=== PATIENT | female | born 1965 | race Caucasian/White ===

== ENCOUNTER 2020-02-02 07:51 | Outpatient (CLI) | payer BC, SELFPAY ==
--- NOTE | ~2020-02-02 | MM_ITS ---
EXAMINATION: MM screening [facility] BI w juanito HISTORY: Screening mammogram TECHNIQUE: Craniocaudal and mediolateral oblique 3-D tomosynthesis images were obtained and synthetic 2-D images were generated. CAD analysis was submitted and interpreted. COMPARISON: 03/25/2018 bilateral digital screening mammogram 03/10/2017 bilateral diagnostic digital mammogram and limited left breast ultrasound 09/17/2016 diagnostic left digital mammogram and limited left breast ultrasound 03/17/2016 diagnostic left digital mammogram 03/09/2016 bilateral digital screening mammogram BREAST PARENCHYMAL COMPOSITION: There are scattered areas of fibroglandular density. FINDINGS: There is no evidence of suspicious mass, calcification, or architectural distortion to sugg est malignancy in either breast. There has been no suspicious interval change. IMPRESSION: 1. No mammographic evidence of malignancy. 2. Recommend routine screening mammography in one year. BI-RADS Category 1: Negative Reviewed, dictated and finalized at location A. 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
--- NOTE | ~2020-02-02 | DEXA_ITS ---
Bone Density Report Name: Destiny Lucas Age: 54 Sex: Female Ethnicity: White Date of : 1965 Indication: postmenopausal; height loss; asthma or emphysema; Referring Provider: Lyndsay White Study: Bone densitometry was performed. Exam Date: February 02, 2020 Accession number: [id number] Bone Density: Region BMD T-score Z-score Classification AP Spine (L1-L4) 1.102 0.5 1.5 Normal Femoral Neck (Left) 0.708 -1.3 -0.3 Osteopenia Total Hip (Left) 0.913 -0.2 0.4 Normal Total Hip Bilateral Avg 0.910 -0.3 0.4 Normal Femoral Neck (Right) 0.760 -0.8 0.2 Normal Total Hip (Right) 0.906 -0.3 0.3 Normal World Health Organization criteria for BMD impression classify patients as: Normal (T-score at or above -1.0), Osteopenia (T-score between -1.0 and -2.5), or Osteoporosis (T-score at or below -2.5). 10-year Fracture Risk(1): Major Osteoporotic Fracture 5.9% Hip Fracture 0.7% Reported Risk Factors: [place] (), Neck BMD=0.708, BMI=25.3, smoking (1) FRAX(R) Version 3.08. Fracture probability calculated for an untreated patient. Fracture probability may be lower if the patient has received treatment. Clinical Information Provided by Patient: Smokes Has the following medical conditions: Asthma or Emphysema Patient maximum height was 64.5 Menopause Age: 52 Does not regularly consume dairy products Drinks caffeinated beverages Onset of menses at age 13 Number of children 1 Impression: The patient has low bone mass, based on the Left Femoral Neck T-score. The patient has an estimated ten-year risk of hip fracture of 0.7% and an estimated ten-year risk of major fracture of 5.9%, based on the WHO FRAX algorithm. The patient has risk factors, including: smoking. Discussion: BONE DENSITY IS LOW AT ONE OR MORE SKELETAL SITES. This patient's lowest T-score is low at one or more skeletal sites. It meets the World Health Organization's (WHO) criteria for ?low bone mass? (T-score between -1.0 and -2.5). The patient's 10-year risk of fracture as calculated by FRAX is less than the threshold where pharmacological therapy is recommended by the National Osteoporosis Foundation (NOF). However, all treatment decisions require clinical judgment and consideration of individual patient factors, including patient preferences, comorbidities, previous drug use, risk factors not captured in the FRAX model (e.g., frailty, falls, vitamin D deficiency, increased bone turnover, interval significant decline in bone density) and possible under or overestimation of fracture risk by FRAX. The patient should follow a healthful lifestyle (good nutrition with adequate calcium and vitamin D, and appropriate weight-bearing exercise). Follow-Up: Consider repeating this study in 2 to 3 years to reassess this patient's status, or sooner if t
== END 2020-02-02 07:52 | disposition home or self-care (01) ==
LOC: ANHIMG 07:53
PROVIDERS: PCP Nurse Practitioner Adult Health; Visit Provider Student in an Organized Health Care Education/Training Program
DX: Z12.31 Encounter for screening mammogram for malignant neoplasm of breast (principal); Z78.0 Asymptomatic menopausal state; M85.852 Other specified disorders of bone density and structure, left thigh
CPT/HCPCS: 77063; 77067; 77080

== ENCOUNTER 2021-03-27 07:44 | Outpatient (CLI) | payer BC, SELFPAY ==
--- NOTE | ~2021-03-27 | MM_ITS ---
EXAMINATION: MM screening [facility] BI w juanito HISTORY: Screening mammogram TECHNIQUE: Craniocaudal and mediolateral oblique 3-D tomosynthesis images were obtained and synthetic 2-D images were generated. CAD analysis was submitted and interpreted. COMPARISON: 02/02/2020, 03/25/2018, 03/10/2017, 09/21/2016, 03/17/2016, 03/09/2016 BREAST PARENCHYMAL COMPOSITION: There are scattered areas of fibroglandular density. FINDINGS: There is no evidence of suspicious mass, calcification, or architectural distortion to sugg est malignancy in either breast. There has been no suspicious interval change. IMPRESSION: 1. No mammographic evidence of malignancy. 2. Recommend routine screening mammography in one year. BI-RADS Category 1: Negative Reviewed, dictated and finalized at location A. 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
== END 2021-03-27 07:45 | disposition home or self-care (01) ==
LOC: ANHIMG 07:47
PROVIDERS: PCP Nurse Practitioner Adult Health; Visit Provider Student in an Organized Health Care Education/Training Program
DX: Z12.31 Encounter for screening mammogram for malignant neoplasm of breast (principal)
CPT/HCPCS: 77063; 77067

== ENCOUNTER 2021-10-05 13:35 | Emergency (ER) | payer BC, SELFPAY ==
--- NOTE | ~2021-10-05 | XR_ITS ---
EXAM: XR finger 4th LT min 2V DATE: 10/05/2021 16:35 HISTORY: laceration prox phalanx Lt 4th finger, injury . COMPARISON: None available. FINDINGS: Normal mineralization. No fracture or dislocation. No lytic or blastic lesion. Joint space s are maintained. No erosion or periosteal change. Soft tissues within normal limits. IMPRESSION: No acute osseous finding in the left fourth finger. Reviewed, dictated and finalized at location K.
[2021-10-05 13:40] VITALS: BP 113/51; PULSE 101; RESP 16; TEMP 36.7; O2SAT 100
--- NOTE | 2021-10-05 16:25 | ED.WOUNDLAC ---
HPI - Wound/Laceration General Chief Complaint: Wound/Laceration Stated Complaint: laceration to left hand Time Seen by Provider: 10/05/21 15:57 Source: patient Mode of arrival: ambulatory Limitations: no limitations History of Present Illness HPI narrative: 56 years old white female came with laceration of the left third finger after that finger got caught while trying to close the gate. Last tetanus shot less than 5 years, patient drove herself to the emergency room. Related Data Home Medications Medication Instructions Recorded Confirmed alprazolam 1 mg tablet 1 mg PO BID 10/20/19 04/08/21 cholecalciferol (vitamin D3) 125 125 mcg PO DAILY 10/20/19 04/08/21 mcg (5,000 unit) capsule sertraline 100 mg tablet (Zoloft) 100 mg PO DAILY 10/20/19 04/08/21 sertraline 50 mg tablet (Zoloft) 50 mg PO DAILY 10/20/19 04/08/21 celecoxib 50 mg capsule (Celebrex) 50 mg PO BID 04/08/21 04/08/21 Allergies Allergy/AdvReac Type Severity Reaction Status Date / Time adhesive tape Allergy Intermediate RASH Verified 04/08/21 11:35 codeine Allergy Unknown Unknown Verified 04/08/21 11:35 Review of Systems Review of Systems: All systems reviewed & are unremarkable except as noted in HPI and below PMFSH Past Medical History Medical History (Updated 10/05/21 @ 17:57 by Sebastian Leslie MD) Anxiety Anxiety and depression Urinary frequency Surgical History Surgical History H/O section Family History Family History Mother Cerebrovascular accident Grandparent Carcinoma of colon Other Family history of malignant neoplasm of breast Social History Social History Smoking status: Current every day smoker Alcohol intake: current Substance use type: marijuana Exam Narrative: General appearance: Well-developed, well-nourished Skin: Normal color Chest and respiratory: Airway patent, no respiratory distress, no accessory muscle use Heart: Regular rate/rhythm Vascular: Normal peripheral pulses, normal capillary refill. Musculoskeletal: Left third finger showed laceration at the lateral side of the proximal phalanx 2 and half centimeter subcutaneous Neurologic: Alert and oriented ?3, Course Vital Signs Vital signs: Vital Signs Temperature 36.7 C 10/05/21 13:40 Pulse Rate 101 H 10/05/21 13:40 Respiratory Rate 16 10/05/21 13:40 Blood Pressure 113/51 L 10/05/21 13:40 Pulse Oximetry 100 10/05/21 13:40 Oxygen Delivery Room Air 10/05/21 13:40 Temperature 36.7 C 10/05/21 13:40 Pulse Rate 101 H 10/05/21 13:40 Respiratory Rate 16 10/05/21 13:40 Blood Pressure 113/51 L 10/05/21 13:40 Pulse Oximetry 100 10/05/21 13:40 Oxygen Delivery Room Air 10/05/21 13:40 Procedures Laceration Laceration 1: Date: 10/05/21 Time: 18:01 Site: hand and other (Left fourth finger) Side (If applicable): left Size (cm): 2.5 Description: linear Depth: simple, single layer Local Anesthetic: lidocaine 1% and with epi Amount of anesthesia used (mL): 3 Pre-repair: wound explored, irrigated extensively and deep structures intact ====== Skin Level ====== Skin layer closed with: nylon Size (cm): 6-0 Number of sutures: 5 ====== Subcutaneous Layer ====== ====== Muscle Layer ====== ====== Tendon Layer ====== Discharge Plan Discharge Clinical Impression: Laceration of finger Patient Disposition: Home, Self-Care Condition: Stable Instructions: Anti
[2021-10-05] MEDS: ACETAMINOPHEN 500 MG TABLET 1000 MG PO (16:47)
[2021-10-05] MEDS: IBUPROFEN 600 MG TABLET PO (16:47)
== END 2021-10-05 18:10 | disposition home or self-care (01) ==
PROVIDERS: Emergency Provider Emergency Medicine; PCP Nurse Practitioner Adult Health
DX: S61.213A Laceration without foreign body of left middle finger without damage to nail, initial encounter (principal); F41.9 Anxiety disorder, unspecified; F32.A Depression, unspecified; F17.200 Nicotine dependence, unspecified, uncomplicated; W23.0XXA Caught, crushed, jammed, or pinched between moving objects, initial encounter
CPT/HCPCS: 12001; 73140; 99283; A9270

== ENCOUNTER 2021-10-15 00:18 | Day surgery (SDC) | payer BC, SELFPAY ==
[2021-10-08 11:43] VITALS: BMI 25.0
[2021-10-15 12:35] VITALS: BP 117/69; PULSE 55; RESP 16; TEMP 36.4; O2SAT 100; BMI 25.4
[2021-10-15] MEDS: LACTATED RINGERS 1,000 ML 150 ML IV CONT (12:44)
--- NOTE | 2021-10-15 12:55 | P.PNAN_ITS ---
Anes - Initial Pre Proc Eval Procedure: Operation Date: 10/15/21 14:00 Proposed Procedures p Colonoscopy - Marc Pearson MD Date/Time: 10/15/21 12:55 Surgeon: Marc Pearson MD Pre Op Diagnosis: abnormal CT scan Patient Data Age: 56 Gender: F Height: 1.63 m Weight: 67.3 kg Last Vital Signs Temp 97.6 F 10/15/21 12:35 Pulse 55 L 10/15/21 12:35 Resp 16 10/15/21 12:35 BP 117/69 10/15/21 12:35 Pulse Ox 100 10/15/21 12:35 O2 Del Method Room Air 10/15/21 12:35 Allergies Allergy/AdvReac Type Severity Reaction Status Date / Time adhesive tape Allergy Intermediate RASH Verified 10/15/21 12:34 codeine Allergy Unknown Unknown Verified 10/15/21 12:34 Home Medications Medication Instructions Recorded Confirmed Type alprazolam 1 mg tablet 1 mg PO TID PRN Anxiety 10/20/19 10/15/21 History sertraline 100 mg tablet (Zoloft) 150 mg PO DAILY 10/20/19 10/15/21 History Patient hx anesthesia problems: none Family hx anesthesia problems: none Results Review: All pre-operative results and documents have been reviewed as part of the pre- operative evaluation. [facility] Past Medical History Medical History (Updated 10/06/21 @ 00:01 by Rashad Gimenez) Anxiety Anxiety and depression Urinary frequency Surgical History Surgical History H/O section Family History Family History Mother Cerebrovascular accident Grandparent Carcinoma of colon Other Family history of malignant neoplasm of breast Social History Social History Smoking packs per day: 1 Smoking cigarettes per day: 20.0 Years smoked: 35 Smoking pack-years: 35.00 Smoking status: Current every day smoker Tobacco type: cigarettes Alcohol intake: former Substance use: current Substance use type: marijuana Other substance usage details: 2X WEEKLY Living arrangements: with family Spiritual care concerns: No Anes - Eval Final PreProcedure Day of Procedure 10/15/21 12:55 Patient weight: normal Heart: regular rate and rhythm Lungs: clear to auscultation Airway: Mallampati scale class II Neurological: alert and oriented Last oral intake: >/= 8 hours ASA classification: II Emergent: no Anesthetic plan: proceed Anesthesia type and monitoring: general GIVS and standard monitoring Results Review: All pre-operative results and documents have been reviewed as part of the pre- operative evaluation. Informed Consent: The patient's anesthetic plan and its attendant risks and benefits were discussed with the patient/family/POA. Questions were solicited and answers provided to the satisfaction of the patient/family/POA.
--- NOTE | 2021-10-15 13:24 | PM.HPGS ---
History of Present Illness History of Present Illness Consent: Risks, benefits, and alternatives have been discussed and questions answered. Patient agrees to proceed with procedure. Chief complaint: abnormal CT scan Narrative: Destiny Lucas is a 56 year old female with epigastric pain, CT scan with incidental finding of sigmoid thickening. Last colonoscopy about 3 years ago. Review of Systems Constitutional: Constitutional: Denies headache(s) and Denies weakness Eyes: Eyes: Denies blurry vision ENT: Reports Normal hearing present, Denies headache(s) and Denies neck pain Cardiovascular: Cardiovascular: Denies chest pain and Denies dyspnea Respiratory: Respiratory: Denies dyspnea Gastrointestinal: Gastrointestinal: Reports no additional gastrointestinal complaints Genitourinary: Genitourinary: Denies dysuria Musculoskeletal: Musculoskeletal: Denies neck pain Integumentary/Breasts: Skin/Breast: Denies dry skin Neurologic: Reports Normal hearing present, Denies headache(s) and Denies weakness Psychiatric: Psychiatric: Denies anxiety Endocrine: Endocrine: Denies change in body appearance Hematologic/Lymphatic: Hematologic/Lymphatic: Denies easy bleeding Allergic/Immunologic: Allergic/Immunologic: Denies urticaria PMFSH Past Medical History Medical History (Updated 10/15/21 @ 13:25 by Marc Pearson MD) Abnormal CT scan, sigmoid colon Anxiety Anxiety and depression Urinary frequency Surgical History Surgical History H/O section Family History Family History Mother Cerebrovascular accident Grandparent Carcinoma of colon Other Family history of malignant neoplasm of breast Social History Social History Smoking packs per day: 1 Smoking cigarettes per day: 20.0 Years smoked: 35 Smoking pack-years: 35.00 Smoking status: Current every day smoker Tobacco type: cigarettes Alcohol intake: former Substance use: current Substance use type: marijuana Other substance usage details: 2X WEEKLY Living arrangements: with family Spiritual care concerns: No Meds Home Medications and Allergies Home Medications Medication Instructions Recorded Confirmed Type alprazolam 1 mg tablet 1 mg PO TID PRN Anxiety 10/20/19 10/15/21 History sertraline 100 mg tablet (Zoloft) 150 mg PO DAILY 10/20/19 10/15/21 History Allergies Allergy/AdvReac Type Severity Reaction Status Date / Time adhesive tape Allergy Intermediate RASH Verified 10/15/21 12:34 codeine Allergy Unknown Unknown Verified 10/15/21 12:34 Vital Signs Vital Signs - 24 hr 10/15/21 12:35 Temperature 97.6 F Pulse Rate 55 L Respiratory Rate 16 Blood Pressure 117/69 Pulse Oximetry 100 Oxygen Delivery Room Air Exam Const: General: comfortable and no acute distress HENMT: General nose exam: Normal nares present Eyes: General: appearance normal, both eyes and all related structures Neck: Neck: no JVD Resp: Auscultation: clear to auscultation bilaterally Cardio: Rate: regular rate Rhythm: regular rhythm GI: Inspection: non-distended GI Palp: Yes Soft to palpation Skin: General skin exam: normal color Neuro: General: gait normal Speech: normal speech Extrem: General: normal to inspection Psych: Mental Status: mental status grossly normal Assessment and Plan Assessment and plan (1) Abnormal CT scan, sigmoid colon: Code(s): R93.3 - Abnormal findings on diagnostic imaging of other parts of digestive tract Status: Acute Assessment and Plan: will assess with colonoscopy
[2021-10-15 13:40] VITALS: BP 104/47; PULSE 60; RESP 19; O2SAT 99
[2021-10-15 13:50] VITALS: BP 100/61; PULSE 60; RESP 18; O2SAT 100
[2021-10-15 14:00] VITALS: BP 106/67; PULSE 55; RESP 17; O2SAT 100
== END 2021-10-15 14:10 | disposition home or self-care (01) ==
PROVIDERS: PCP Nurse Practitioner Adult Health; Visit Provider Internal Medicine Gastroenterology
PROC: 0DJD8ZZ Inspection of Lower Intestinal Tract, Via Natural or Artificial Opening Endoscopic (ICD-10-PCS; CPT 45378; principal; 2021-10-15 14:00)
DX: K57.30 Diverticulosis of large intestine without perforation or abscess without bleeding (principal); K64.8 Other hemorrhoids; F41.8 Other specified anxiety disorders; F17.210 Nicotine dependence, cigarettes, uncomplicated; F12.90 Cannabis use, unspecified, uncomplicated
CPT/HCPCS: 45378; J2704; J7120